=== PATIENT | male | born 1985 | race Caucasian/White ===

== ENCOUNTER → 2020-07-03 12:57 | Outpatient (CLI) | payer OTHER, SELFPAY ==
--- NOTE | ~2020-07-03 | MR_ITS ---
EXAMINATION: MR brain IAC wo/w con DATE: 07/03/2020 14:00 INDICATION: Right-sided sensorineural hearing loss. Tinnitus. TECHNIQUE: Magnetic resonance imaging (MRI) of the brain, brainstem, and internal auditory canals was performed without and with 18 mL MultiHance intravenous contrast. Sequences included sagittal and ax ial T1-weighted FSE, axial diffusion-weighted FS EPI, axial T2*-weighted GRE, axial T2-weighted FLAIR Propeller, axial T2-weighted Propeller, small otijk-sk-buzv coronal FIESTA, small kgbeh-yv-pxrr lav[place] nal T1-weighted FSE, and small ukyyf-gb-rrys axial T1-weighted SPGR. Postcontrast sequences included axial T1-weighted FSE, small vicyb-cc-ayhh coronal T1-weighted FSE, and small puhmv-cc-tstk axial T1- weighted SPGR. Apparent diffusion coefficient (ADC) maps were created. COMPARISON: None. FINDINGS: There is no intracranial hemorrhage, acute infarction, or abnormal intracranial mass lesion . The ventricles are normal in size. There is mild mucosal thickening in the paranasal sinuses. The o rbits are normal. The internal auditory canals and inner and middle ears are normal. The mastoid air cells are normal. IMPRESSION: 1. Normal brain. Reviewed, dictated and finalized at location A. IMPRESSION: 1. Normal brain.
[2020-07-03 13:26] LABS: Estimated Glomerular Filt Rate > 60
== END ==
PROVIDERS: Visit Provider Otolaryngology
DX: H90.5 Unspecified sensorineural hearing loss (principal)
CPT/HCPCS: 36415; 70553; A9577

== ENCOUNTER 2023-02-10 09:05 | Emergency (ER) | payer OTHER, SELFPAY ==
--- NOTE | ~2023-02-10 | XR_ITS ---
XR chest 2V DATE: 02/10/2023 09:41 INDICATION: Right chest pain. Congestion. TECHNIQUE: 2 views COMPARISON: None FINDINGS: Normal heart size. No hilar or mediastinal enlargement. Minimal focal infiltrate is suggested in the right upper lobe. The lungs otherwise appear clear. No p leural effusion or pulmonary vascular congestion or pneumothorax. IMPRESSION: Possible minimal right upper lobe infiltrate Reviewed, dictated and finalized at location B.
[2023-02-10 09:20] VITALS: BP 122/83; PULSE 73; RESP 14; TEMP 35.9; O2SAT 98
--- NOTE | 2023-02-10 09:33 | ED.URI ---
HPI - URI/Sore Throat General Chief Complaint: Upper Respiratory Infection Stated Complaint: cough,congestion Time Seen by Provider: 02/10/23 09:33 Source: patient Mode of arrival: ambulatory Limitations: no limitations History of Present Illness HPI Narrative: Ctsrkp-otcxa-wlxm-old male presents with complaint cough for 3 days. Reports right-sided chest pain with coughing and feeling of congestion to right lung. Afebrile. Denies body aches, chills. No congestion or sore throat. Taking ynse-ijv-htfeyfw DayQuil NyQuil to treat symptoms. All systems reviewed and negative except as noted above. Related Data Home Medications Medication Instructions Recorded Confirmed triamterene 37.5 1 cap PO DAILY 02/10/23 02/10/23 mg-hydrochlorothiazide 25 mg capsule Allergies Allergy/AdvReac Type Severity Reaction Status Date / Time No Known Allergies Allergy Verified 02/10/23 09:22 Review of Systems Review of Systems: CONSTITUTIONAL: Denies fever, chills, or sweats. EYES: Denies visual changes, redness, or discharge. ENT: Denies rhinorrhea, congestion, sore throat, or otalgia. CARDIOVASCULAR: Denies chest pain, palpitations, or edema. RESPIRATORY: reports cough. Denies dyspnea. GASTROINTESTINAL: Denies abdominal pain, nausea, vomiting, or diarrhea. GENITOURINARY: Denies dysuria or hematuria. SKIN: Denies rash or itching. MUSCULOSKELETAL: Denies back pain, joint pain, or myalgia. NEUROLOGIC: Denies headache, numbness, or weakness. PSYCHIATRIC: Denies anxiety or depression. All other systems reviewed are negative, except as documented in HPI. PMFSH Comments At time of signature, agree with nursing past medical, surgical, social and family history. There is no relevant family history pertinent to the presenting complaint. Exam Narrative: GENERAL: This is a well-nourished, well-developed patient, in no apparent distress. HEAD: normocephalic, atraumatic. EYES: PERRL. Sclera clear/white. Vision is grossly intact. EARS: External ears normal, auditory canals clear and without drainage, TMs normal without perforation. Hearing grossly intact. NOSE: External nose normal with no obvious nasal discharge, nares without redness, no rhinorrhea. THROAT: Mucous membranes moist, posterior pharynx clear. NECK: Neck supple, non-tender without lymphadenopathy, masses or thyromegaly. CARDIOVASCULAR: Regular rate and rhythm without murmurs, gallops, or rubs. RESPIRATORY: Clear to auscultation. Breath sounds equal bilaterally. No wheezes, rales, or rhonchi. SKIN: warm, Dry, intact with no suspicious lesions or rash, good texture and turgor. NEURO: awake, alert, and oriented to person, place and time. There were no obvious focal neurologic abnormalities. EXTREMITIES: No joint tenderness, effusion, or edema noted. Course Course Level of Care: Express Care Visit Vital Signs Vital signs: Vital Signs Temperature 35.9 C L 02/10/23 09:20 Pulse Rate 73 02/10/23 09:20 Respiratory Rate 14 02/10/23 09:20 Blood Pressure 122/83 02/10/23 09:20 Pulse Oximetry 98 02/10/23 09:20 Oxygen Delivery Room Air 02/10/23 09:20 Temperature 35.9 C L 02/10/23 09:20 Pulse Rate 73 02/10/23 09:20 Respiratory Rate 14 02/10/23 09:20 Blood Pressure 122/83 02/10/23 09:20 Pulse Oximetry 98 02/10/23 09:20 Oxygen Delivery Room Air 02/10/23 09:20 reviewed MDM - URI/Sore Throat MDM Narrative Medical decision making narrative: normal exam findings. Lung sounds clear to auscultation. Patient is requesting a chest x-ray due to his symptoms. Imaging Data My impression: agree with radiologist Radiologist's impression: XR chest 2V DATE: 02/10/2023 09:41 INDICATION: Right chest pain. Congestion.? TECHNIQUE: 2 views? COMPARISON: None? FINDINGS: Normal heart size. No hilar or mediastinal enlargement. Minimal focal infiltrate is suggested in the right upper lobe. The lungs otherwise appear clear. No
== END 2023-02-10 10:12 | disposition home or self-care (01) ==
PROVIDERS: Emergency Provider Nurse Practitioner Family; PCP Family Medicine
DX: J18.9 Pneumonia, unspecified organism (principal)
CPT/HCPCS: 71046; 99203; G0463